=== PATIENT | female | born 1935 | race Caucasian/White ===

== ENCOUNTER 2020-04-10 10:53 | Day surgery (SDC) | payer MEDICARE ==
[~2020-04-10] VITALS: Ht 165.1 cm; Wt 72.7 kg
[~2020-04-10 10:53] MED LIST: ALBU2.5V11 NEB; ALLO100T30 PO; ASPI-496 PO; ATOR-2 PO; CALC-534 PO; CARV12.52 PO; CHOL10002 PO; CLON0.1T22 PO; FLUT9.9S NS; HYDR-3237 PO; HYDR12.517 PO; NITR0.4T28 SL; PANT40TA5 PO; magnesium PO; potassium chloride PO
[2020-04-10] MEDS ORDERED: LIDOCAINE 2%, 20ML ONE (12:12)
== END 2020-04-10 13:54 | disposition home or self-care (01) ==
LOC: CACL 10:53
PROVIDERS: ATTEND Internal Medicine Cardiovascular Disease
DX: I49.5 Sick sinus syndrome (principal); R42 Dizziness and giddiness; I10 Essential (primary) hypertension; E78.2 Mixed hyperlipidemia; I70.0 Atherosclerosis of aorta; I70.1 Atherosclerosis of renal artery; M10.9 Gout, unspecified; I25.10 Atherosclerotic heart disease of native coronary artery without angina pectoris; Z79.82 Long term (current) use of aspirin; Z79.891 Long term (current) use of opiate analgesic; Z79.899 Other long term (current) drug therapy; Z86.711 Personal history of pulmonary embolism; Z88.2 Allergy status to sulfonamides; Z88.8 Allergy status to other drugs, medicaments and biological substances
CPT/HCPCS: 33285; C1764